=== PATIENT | male | born 1940 | race Caucasian/White ===

== ENCOUNTER 2017-10-09 14:05 | Outpatient (CLI) | payer MEDICARE, BC ==
[~2017-10-09 14:05] MED LIST: Iopamidol 370 76% 100 ML VIAL ONE
== END 2017-10-09 14:06 | disposition home or self-care (01) ==
LOC: BICCT 14:05
PROVIDERS: ATTEND Thoracic Surgery (Cardiothoracic Vascular Surgery)
DX: I71.4 Abdominal aortic aneurysm, without rupture (principal); I70.1 Atherosclerosis of renal artery; K80.20 Calculus of gallbladder without cholecystitis without obstruction; M79.672 Pain in left foot; M79.671 Pain in right foot
CPT/HCPCS: 75635

== ENCOUNTER 2017-11-08 06:25 | Inpatient (IN) | payer MEDICARE, BC ==
[2017-11-07 09:31] VITALS: BMI 30.7
[2017-11-08] MEDS ORDERED: Phenylephrine HCL 10 MG/ML VIAL ONE (06:33)
[2017-11-08] MEDS ORDERED: Fentanyl 250 MCG/5 ML VIAL ONE ×2 (06:33→10:16)
[2017-11-08 06:48] LABS: #Basophils 0.1 thou/uL (0.0-0.2); #Eosinphils 0.3 thou/uL (0.0-0.7); #Lymphocytes 2.7 thou/uL (1.20-3.40); #Monocytes 0.8 thou/uL (0.11-0.59); #Neutrophils 4.3 thou/uL (1.40-6.50); %Basophils 0.6 % (0.0-1.0); %Eosinophils 3.9 % (0.0-10.0); %Lymphocytes 33.2 % (21.0-51.0); %Neutrophils 52.3 % (42.0-75.0); Hemoglobin 13.7 g/dL (14.0-18.0); Mean Corpuscular HGB CONC 33.2 g/dL (32.0-36.0); Mean Corpuscular Hemoglobin 30.9 pg (27.0-31.0); Mean Corpuscular Volume 93.1 fl (80.0-94.0); Platelet Count 224 thou/uL (130-400); RBC Distribution Width 11.5 % (11.5-14.5); Red Blood Cell (RBC) Count 4.42 mill/uL (4.70-6.10); White Blood Cell (WBC) Count 8.3 thou/uL (4.8-10.8)
[2017-11-08] MEDS ORDERED: CEFAZOLIN/Water 2 GM/20 ML SYRINGE ONE (06:51)
[2017-11-08 06:52] LABS: INR-International Normal Ratio 1.1; PTT 28.4 SEC (22.9-36.1)
[2017-11-08] MEDS ORDERED: Heparin 10,000 UNITS/1 ML VIAL ONE (06:52)
[2017-11-08 06:59] LABS: Anion Gap 10 mmol/L (10-20); BUN (Urea Nitrogen) 29 mg/dL (8.4-25.7); Calc. Creatinine Clearance 42 mL/min (70-130); Calcium 8.9 mg/dL (7.8-10.44); Carbon Dioxide 27 mmol/L (23-31); Chloride 107 mmol/L (98-107); Estimated GFR-MDRD 37; Glucose 107 mg/dL (83-110); Potassium 4.2 mmol/L (3.5-5.1); Sodium 140 mmol/L (136-145)
[2017-11-08] MEDS ORDERED: Protamine Sulfate 50 MG/5 ML VIAL ONE (08:56)
[2017-11-08] MEDS ORDERED: Promethazine HCl 25 MG/ML VIAL SLOW IVP PRN (10:38)
[2017-11-08] MEDS ORDERED: Ondansetron HCl/PF 4 MG/2 ML Vial IVP PRN ×2 (10:38→12:17)
[2017-11-08] MEDS ORDERED: Promethazine HCl 25 MG/ML VIAL IM PRN ×2 (10:38→12:17)
--- NOTE | 2017-11-08 10:43 | OP ---
DATE OF PROCEDURE: 11/08/2017 PREOPERATIVE DIAGNOSIS: Abdominal aortic aneurysm. POSTOPERATIVE DIAGNOSIS: Abdominal aortic aneurysm. PROCEDURE: 1. Endovascular repair of abdominal aortic aneurysm with a 23 x 14 x 103 E2S Medtronic Endurant francisca n body left. 2. Left iliac extension with a 16 x 10 x 120 extension. 3. Right iliac extension with a 16 x 10 x 120 right iliac extension. 4. ProGlide closure of the right femoral access. 5. Open femoral exposure of the left access with an endarterectomy and patch angioplasty closure. SURGEON: Dr. Marcus Griffin and Dr. Will Robles. ANESTHESIA: General endotracheal. ESTIMATED BLOOD LOSS: 150 mL. TOTAL CONTRAST: 62.25 mL. TOTAL FLUOROSCOPY TIME: 13 minutes. PROCEDURE IN DETAIL: After consent was obtained, the patient was taken to the operating room and morales armida in the supine position on operating room table. Appropriate anesthetic monitor was placed and ge neral endotracheal anesthesia induced. Groins were prepped and draped in usual sterile fashion. Usi ng ultrasound guidance, the common femoral artery was accessed on the right and a 5 Belgian sheath morales armida. ProGlides were placed in a crossed fashion for preclose. On the left, ultrasound guidance was used to access the left common femoral artery. ProGlides were t hen placed in a cross fashion for preclose. The Bentson guidewire on the right was exchanged with a Arsh catheter for a Lunderquist wire. A 12-F rench sheath was then placed into the abdominal aneurysm. On the left, the Bentson guidewire was exc hanged with a Arsh catheter for a Lunderquist wire. Contra catheter was placed on the right. Abdomi nal aortogram was performed. Renal arteries were localized and an E2S graft selected. The graft was passed over the Lunderquist wire on the left in position. The graft was deployed just below the lef t renal artery. Access to the right gate was then performed utilizing a Jemison catheter and Lunderquis t wire. The Contra catheter was placed into the graft and twirled and it twirled easily. Hand injec gm arteriogram was performed through the right sheath eliminating the iliac arteries. The appropria te iliac extension was selected and deployed. This was performed in a similar fashion on the left. Reliant balloons were used to tap out the full length of the graft. Aortogram showed excellent resul t with a late type 2 endoleak. The patient was given 7500 units of heparin at the beginning of the p rocedure. On the right guidewires and sheaths were removed and ProGlides closed for good hemostasis. On the left, ProGlides were closed, but we did not obtain good hemostasis. An 11 Belgian sheath was placed for hemostasis. Cut down on the femoral artery was performed. The ProGlides had deployed on a piece of plaque inside the artery and were not hemostatic. The area of access was debrided. Bovi ne pericardial patch was sewn in place with running 6-0 Prolene suture to close the artery. On relea se of the clamps, there was good hemostasis. 50 mg of protamine was given. Wounds were irrigated, c losed in layers and Dermabond applied to the skin. The patient was awakened, extubated, and transfer red to the recovery room in stable condition. Needle, sponge, and instrument counts were all reporte d correct at the end of the procedure.
[2017-11-08] MEDS ORDERED: Nitroglycerin 50 MG/250 ML BOT 250 ML IVPB PRN (12:17)
[2017-11-08] MEDS ORDERED: Fentanyl 100 MCG/2 ML VIAL SLOW IVP PRN (12:17)
[2017-11-08] MEDS ORDERED: hydrALAZINE 20 MG/ML VIAL SLOW IVP PRN ×2 (12:17→16:48)
[2017-11-08] MEDS ORDERED: HYDROcodone/Acetaminophen 5/325 mg Tablet PO PRN ×2 (12:17)
[2017-11-08] MEDS ORDERED: Acetaminophen 325 MG TAB PO PRN (12:17)
[2017-11-08] MEDS: Sodium Chloride 0.9% 1,000 ML IV SCH (13:44)
[2017-11-08] MEDS: Gabapentin 100 MG CAP PO SCH ×2 (14:06→21:14)
[2017-11-08] MEDS: CEFAZOLIN/Water 2 GM/20 ML SYRINGE SLOW IVP SCH ×2 (14:32→21:20)
[2017-11-08] MEDS ORDERED: Ondansetron HCl/PF 4 MG/2 ML Vial ONE (15:16)
[2017-11-08] MEDS ORDERED: PROPOFOL 200 MG/20 ML VIAL ONE (15:16)
[2017-11-08] MEDS ORDERED: PHENYLEPHRINE-NS 100 MCG/ML 10 ML SYRINGE ONE (15:16)
[2017-11-08] MEDS ORDERED: Glycopyrrolate 0.2 MG/ML 5 ML SYRINGE ONE (15:16)
[2017-11-08] MEDS ORDERED: Dexamethasone 20 MG/5 ML VIAL ONE (15:16)
[2017-11-08] MEDS ORDERED: Lidocaine 1% PF 5 ML VIAL ONE (15:16)
[2017-11-08] MEDS ORDERED: Labetalol 100 MG/20 ML MDV ONE (15:16)
[2017-11-08] MEDS ORDERED: Heparin 10,000 UNITS/ 10 ML VIAL ONE (15:16)
[2017-11-08] MEDS ORDERED: Acetaminophen/Codeine 30-300mg Tablet PO PRN ×2 (16:51)
[2017-11-08] MEDS ORDERED: Losartan 25 MG TAB PO SCH (17:00)
--- NOTE | 2017-11-08 20:59 | CON ---
DATE OF CONSULTATION: 11/08/2017 HISTORY OF PRESENT ILLNESS: Mr. Martinez is a very pleasant gentleman who underwent endovascular aor tic aneurysm repair today. He has no complaints after his surgery. He is awake, moving all his extremities and denies any pain anywhere. PAST MEDICAL HISTORY: Remarkable for, 1. Hypertension. 2. Lipid disorder. 3. History of arthritis. 4. History of cerebrovascular accident in the past. 5. History of osteoarthritis. 6. History of vascular headaches. MEDICATIONS: Prior to admission, he was on aspirin, atorvastatin, losartan, calcium, vitamin D, hydr ocodone, gabapentin. PAST SURGICAL HISTORY: He has had cataract surgery in the past and L5 laminectomy in 2009. ALLERGIES: Has no drug allergies. SOCIAL HISTORY: He is nonsmoker, nondrinker, does not use drugs. FAMILY HISTORY: Negative for lung disease in early age, socially interesting his had the same s urgery 5 years ago. REVIEW OF SYSTEMS: Twelve point is otherwise negative. PHYSICAL EXAMINATION: GENERAL: He is a very pleasant gentleman in no distress. He has not urinated since surgery and says he has tried, but cannot. I asked the nurse to ultrasound him while I was there. VITAL SIGNS: His blood pressure is 139/72, heart rate 87, respiratory rate 17, oximetry is 96. HEENT: Pupils are equal. Sclerae is anicteric. NECK: Supple. LUNGS: Clear. HEART: Regular rhythm. S1 and S2 are normal. ABDOMEN: Soft and nontender. EXTREMITIES: Warm. He moves all 4 extremities neurologically. LABORATORY DATA: His coags are normal. White count is 8.3, hemoglobin 13.7, platelets 224. Sodium 140, potassium 4.2, chloride 107, bicarbonate 27, BUN 29, creatinine 1.8. IMPRESSION: 1. Status post endovascular aortic aneurysm repair. 2. Chronic kidney disease. 3. History of peripheral vascular disease or stroke in the past. He appears stable at this time in the ICU. This is a 50 minutes consult greater than 50% of the consult time was spent on the unit coordinating care.
[2017-11-08] MEDS ORDERED: Atorvastatin Calcium 40 MG TAB PO SCH (21:00)
[2017-11-08] MEDS: Metoprolol Tartrate 25 MG TAB PO SCH (21:14)
[2017-11-09] MEDS: Sodium Chloride 0.9% 1,000 ML IV SCH ×2 (00:11→09:49)
[2017-11-09 04:37] LABS: #Basophils 0.1 thou/uL (0.0-0.2); #Lymphocytes 1.7 thou/uL (1.20-3.40); #Monocytes 1.4 thou/uL (0.11-0.59); #Neutrophils 10.1 thou/uL (1.40-6.50); %Basophils 0.7 % (0.0-1.0); %Lymphocytes 12.8 % (21.0-51.0); %Monocytes 10.6 % (0.0-10.0); %Neutrophils 75.9 % (42.0-75.0); Hemoglobin 10.6 g/dL (14.0-18.0); Mean Corpuscular HGB CONC 33.7 g/dL (32.0-36.0); Mean Corpuscular Hemoglobin 31.4 pg (27.0-31.0); Mean Corpuscular Volume 93.1 fl (80.0-94.0); Mean Platelet Volume 8.1 fL (7.4-10.4); Platelet Count 183 thou/uL (130-400); RBC Distribution Width 11.4 % (11.5-14.5); Red Blood Cell (RBC) Count 3.37 mill/uL (4.70-6.10); White Blood Cell (WBC) Count 13.4 thou/uL (4.8-10.8)
[2017-11-09 05:10] LABS: Anion Gap 13 mmol/L (10-20); BUN (Urea Nitrogen) 32 mg/dL (8.4-25.7); Calc. Creatinine Clearance 39 mL/min (70-130); Calcium 7.8 mg/dL (7.8-10.44); Carbon Dioxide 19 mmol/L (23-31); Chloride 107 mmol/L (98-107); Estimated GFR-MDRD 34; Glucose 163 mg/dL (83-110); Sodium 134 mmol/L (136-145)
[2017-11-09] MEDS: CEFAZOLIN/Water 2 GM/20 ML SYRINGE SLOW IVP SCH (05:20)
[2017-11-09 08:51] VITALS: TEMP 98.5
[2017-11-09] MEDS ORDERED: Aspirin 81 mg Enteric Coated Tablet PO SCH (09:00)
[2017-11-09] MEDS ORDERED: Losartan 25 MG TAB PO SCH (09:00)
--- NOTE | 2017-11-09 09:51 | PRG ---
DATE OF SERVICE: 11/09/2017 SUBJECTIVE: Mr. Martinez looks great. He is sitting on the side of the bed. PHYSICAL EXAMINATION: LUNGS: Clear. HEART: Regular rhythm. S1 and S2 normal. ABDOMEN: Soft and nontender. MUSCULOSKELETAL: His feet are warm. VITAL SIGNS: His heart rate is 77, blood pressure 122/49, respiratory rate 18. LABORATORY DATA: White count 13.4, hemoglobin 10.6 and it was 13.7 yesterday, platelets 183. Sodium 134, potassium 5, chloride 107, bicarbonate 19, BUN 32, creatinine 1.94. IMPRESSION: 1. Status post endovascular repair of an aortic aneurysm. 2. Acute on chronic kidney disease with slight decline in renal function as expected in the perioper ative period and he will need to be followed closely if he is discharged as an outpatient. 3. Blood loss anemia. PLAN: As per Cardiothoracic Surgery. He is medically stable at this point in time. If he stays, I would repeat lab in the morning and if he is discharged home, then he will need lab repeated sometime early next week.
[2017-11-09] MEDS: Gabapentin 100 MG CAP PO SCH (10:01)
[2017-11-09] MEDS: Metoprolol Tartrate 25 MG TAB PO SCH (10:01)
--- NOTE | 2017-11-09 11:11 | DIS ---
DATE OF ADMISSION: 11/08/2017 DATE OF DISCHARGE: 11/09/2017 PRINCIPAL DIAGNOSIS: Abdominal aortic aneurysm. SECONDARY DIAGNOSIS: Hypertension. PROCEDURES PERFORMED: Endovascular repair of abdominal aortic aneurysm 23 x 14 x 103 E2S AST Medtron ic Endurant main body on the left with a left iliac extension 16 x 10 x 120 and a right iliac extensi on with 16 x 10 x 120 ProGlide closure of the right femoral access, open femoral exposure with endart erectomy and patch angioplasty closure of left access 11/08/2017. HISTORY OF PRESENT ILLNESS AND HOSPITAL COURSE: Patient is a 77-year-old man with hypertension who w as found to have an abdominal aortic aneurysm. Anatomically, it was amenable to EVAR and the plan wa s made to proceed with EVAR percutaneous approach was initiated, but there was failure to adequately close the left femoral puncture site with percutaneous ProGlide technique that was converted to an op en approach to endarterectomized plaque into a patch angioplasty of the arteriotomy, he recovered in the Intensive Care Unit and the only events of note were tachycardia and marked hypertension primaril y associated with his attempt at voiding as his heart rates were achieving 110s and systolic blood pr essures as high as 200s. He was started on beta blockade in the form of Lopressor 25 mg b.i.d. while for the most part, his heart rates and blood pressures have been under adequate control, early this morning around 6:00 his heart rates and blood pressures went back up again. Today on postoperative d ay #1, he is doing well. The incisions are clean and dry, has strong dorsalis pedis pulses and his a bdomen is soft and nontender. He already has some Vicodin at home. [facility] Lopressor 25 mg b.i.d. Follow up will be in the office there.
--- NOTE | 2017-12-06 09:35 | EKG ---
Test Reason : PREOP Blood Pressure : / mmHG Vent. Rate : 076 BPM Atrial Rate : 076 BPM P-R Int : 140 ms QRS Dur : 080 ms QT Int : 376 ms P-R-T Axes : -19 061 052 degrees QTc Int : 423 ms Normal sinus rhythm Normal ECG When compared with ECG of 27-JUN-2012 14:11, No significant change was found Confirmed by DR. Rex BOWEN ([id number]) on 12/06/2017 9:34:24 AM Referred By: Kerwin LOVELL Confirmed By:DR. Rex BOWEN
== END 2017-11-09 10:54 | disposition home or self-care (01) | DRG 269 ==
LOC: SURG A 06:25 → CCU 12:48
PROVIDERS: ADMIT Thoracic Surgery (Cardiothoracic Vascular Surgery); ATTEND Thoracic Surgery (Cardiothoracic Vascular Surgery)
PROC: 04V03DZ Restriction of Abdominal Aorta with Intraluminal Device, Percutaneous Approach (ICD-10-PCS; principal; 2017-11-08)
PROC: 04CL0ZZ Extirpation of Matter from Left Femoral Artery, Open Approach (ICD-10-PCS; 2017-11-08)
PROC: 04VC3DZ Restriction of Right Common Iliac Artery with Intraluminal Device, Percutaneous Approach (ICD-10-PCS; 2017-11-08)
PROC: 04VD3DZ Restriction of Left Common Iliac Artery with Intraluminal Device, Percutaneous Approach (ICD-10-PCS; 2017-11-08)
PROC: 04UL0JZ Supplement Left Femoral Artery with Synthetic Substitute, Open Approach (ICD-10-PCS; 2017-11-08)
DX: I71.4 Abdominal aortic aneurysm, without rupture (principal); D50.0 Iron deficiency anemia secondary to blood loss (chronic); E78.2 Mixed hyperlipidemia; Z86.73 Personal history of transient ischemic attack (TIA), and cerebral infarction without residual deficits; Z87.891 Personal history of nicotine dependence; N18.9 Chronic kidney disease, unspecified; I12.9 Hypertensive chronic kidney disease with stage 1 through stage 4 chronic kidney disease, or unspecified chronic kidney disease; R00.0 Tachycardia, unspecified; E66.9 Obesity, unspecified; Z68.30 Body mass index [BMI] 30.0-30.9, adult
CPT/HCPCS: 36415; 76001; 80048; 85025; 85610; 85730; 86850; 86900; 86901; 93005; 93010; C1726; C1760; C1769; C1894; J0360; J1100; J1642; J1644; J2001; J2370; J2405; J2704; J2720; J3010

== ENCOUNTER 2017-12-25 12:41 | Outpatient (CLI) | payer MEDICARE, BC | END 2017-12-25 12:42 | disposition home or self-care (01) | LOC: CT 12:41 | PROVIDERS: ATTEND Thoracic Surgery (Cardiothoracic Vascular Surgery) | DX: I71.4 Abdominal aortic aneurysm, without rupture (principal) | CPT/HCPCS: 82565 ==

== ENCOUNTER 2020-03-29 11:59 | Outpatient (CLI) | payer MEDICARE, BC ==
--- NOTE | 2020-03-29 12:23 | RAD ---
EXAM: CHEST TWO VIEWS 03/29/2020 12:20 PM HISTORY: 79-year-old male with dyspnea COMPARISON: CTA of the chest dated October 09, 2017 FINDINGS: Lungs: There is stable elevation the left hemidiaphragm. There is mild left basilar atelectasis. No acute airspace opacity is evident. Heart: Normal in size and contour. Pulmonary Vessels: Normal. Costophrenic Angles: Clear. Pneumothorax: None. Osseous Structures: Intact. Additional Findings: There is an endograft stent seen within the abdominal aorta. There are gallsto reyes within the upper quadrant of the abdomen. IMPRESSION: No acute cardiopulmonary abnormality. Cholelithiasis Stable elevation left hemidiaphragm with mild left basilar atelectasis
== END 2020-03-29 12:00 | disposition home or self-care (01) ==
LOC: BICRAD 11:59
PROVIDERS: ATTEND Internal Medicine Pulmonary Disease
DX: R06.00 Dyspnea, unspecified (principal); K80.20 Calculus of gallbladder without cholecystitis without obstruction; J98.11 Atelectasis
CPT/HCPCS: 71046

== ENCOUNTER 2020-05-27 06:58 | Outpatient (CLI) | payer MEDICARE, BC, OTHER ==
[2020-05-28 14:53] LABS: SARS-CoV-2 MS2 Positive; SARS-CoV-2 N Gene Negative; SARS-CoV-2 S Gene Negative; SARS-CoV-2 by NAA Not Detected (NotDetected); SARS-CoV-2 orf1ab Negative
== END 2020-05-27 06:59 | disposition home or self-care (01) ==
LOC: LABBT 06:58
PROVIDERS: ATTEND Neurological Surgery
DX: M54.16 Radiculopathy, lumbar region (principal); Z20.828 Contact with and (suspected) exposure to other viral communicable diseases
CPT/HCPCS: 87635; U0003

== ENCOUNTER 2020-06-01 05:29 | Day surgery (SDC) | payer MEDICARE, BC ==
[2020-05-27 13:19] VITALS: BMI 30.7
--- NOTE | 2020-05-31 22:34 | HP ---
HISTORY OF PRESENT ILLNESS: Mr. Martinez is a pleasant 79-year-old man known to our practice for prior lumbar decompression 7 to 8 years ago, who returns now with recurrent left lower extremity pain that sound to best fit in L5 pattern. He has received 2 epidural steroid injections. The worst providing excellent relief and secondly providing roughly 48 hours relief. For this reason, Dr. Lopez has referred him to our office. 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 He hopes to discuss surgical options. Examination is deferred secondary to COVID telehealth visit. PAST MEDICAL HISTORY: Significant for hypercholesterolemia, CVA, migraines, hypertension, arthritis. PAST SURGICAL HISTORY: Lumbar decompression x2. CURRENT MEDICATIONS: 1. Gabapentin. 2. Hydrocodone. 3. Fish oil. 4. Losartan. 5. Atorvastatin. 6. Aspirin. ALLERGIES: NO KNOWN DRUG ALLERGIES. ASSESSMENT: Lumbar radiculopathy. PLAN: Dr. Lopez met with the patient, reviewed imaging, advocated for left L4-L5 decompression. He explained to the patient the risks, benefits, and alternatives to the procedure. The patient expressed understanding and elected to move forward with surgery as discussed. I do believe the patient is mentally competent and capable of making medical decisions for himself. We will move forward with surgery as planned. Job ID: [id number]
[2020-06-01] MEDS ORDERED: Fentanyl 100 MCG/2 ML VIAL ONE ×2 (06:17→08:09)
[2020-06-01] MEDS ORDERED: Bupivacaine HCl 0.5%/Epinephrine 1:200,000/PF 30 ml Vial ONE (06:19)
[2020-06-01] MEDS ORDERED: Thrombin 5000 UNITS/5 ML VIAL ONE (06:19)
[2020-06-01 07:14] LABS: Anion Gap 11 mmol/L (10-20); BUN (Urea Nitrogen) 25 mg/dL (8.4-25.7); Calc. Creatinine Clearance 46 mL/min (70-130); Calcium 8.8 mg/dL (7.8-10.44); Carbon Dioxide 26 mmol/L (23-31); Chloride 107 mmol/L (98-107); Estimated GFR-MDRD 43; Glucose 98 mg/dL (83-110); Potassium 4.2 mmol/L (3.5-5.1); Sodium 140 mmol/L (136-145)
[2020-06-01] MEDS ORDERED: Tamsulosin HCl 0.4 MG CAP ONE (08:18)
--- NOTE | 2020-06-01 09:16 | OP ---
DATE OF PROCEDURE: 06/01/2020 SLIDE ATTENDANT: Stefan Mendoza PA-C INDICATION: Pain. DIAGNOSIS: Lumbar radiculopathy. PROCEDURE PERFORMED: Left L4-L5 decompression. ANESTHESIA: General. DESCRIPTION OF PROCEDURE: The patient was brought into the operating room and put under general anesthesia. He was flipped from the supine to prone position on operating room table. A linear incision was planned over the L4-L5 segment. After prepping and draping and after an appropriate preoperative pause, the incision was created. The soft tissues were swept left of midline. A self-retaining retractor was placed in the wound for optimal exposure. After confirming appropriate level with C-arm fluoroscopy, high-speed cutting drill bit as well as 2, 3, and 4 mm Kerrisons were used to perform a laminectomy along the L4-L5 segment. The laminectomy was extended laterally to encompass the medial half of the facet joint. After completing the decompression, the wound was irrigated. Hemostasis was maintained throughout. The wound was then closed in anatomic layers, and a pressure dressing was applied. There were no known procedural complications. Job ID: [id number]
[2020-06-01] MEDS ORDERED: Ondansetron ODT 4 MG TAB ONE (10:43)
[2020-06-01] MEDS ORDERED: Ketorolac Tromethamine 30 MG/ML VIAL ONE (11:16)
[2020-06-01] MEDS ORDERED: Labetalol HCl 100 MG/20 ML VIAL ONE (11:16)
[2020-06-01] MEDS ORDERED: Glycopyrrolate 0.2 MG/ML 5 ML SYRINGE ONE (11:16)
[2020-06-01] MEDS ORDERED: PROPOFOL 200 MG/20 ML VIAL ONE (11:16)
[2020-06-01] MEDS ORDERED: Rocuronium Bromide 10 MG/ML (10ML VIAL) ONE (11:16)
[2020-06-01] MEDS ORDERED: PHENYLEPHRINE-NS 100 MCG/ML 10 ML SYRINGE ONE (11:16)
[2020-06-01] MEDS ORDERED: Lidocaine 1% PF 5 ML VIAL ONE (11:16)
[2020-06-01] MEDS ORDERED: Ondansetron PF 4 MG/2 ML Vial ONE (11:16)
--- NOTE | 2020-06-01 15:07 | EKG ---
Test Reason : PREOP Blood Pressure : / mmHG Vent. Rate : 057 BPM Atrial Rate : 057 BPM P-R Int : 158 ms QRS Dur : 088 ms QT Int : 440 ms P-R-T Axes : -17 055 030 degrees QTc Int : 428 ms Sinus bradycardia Otherwise normal ECG Confirmed by PAULO RICHARDSON ([id number]) on 06/01/2020 3:07:14 PM Referred By: ABDOULAYE Confirmed By:PAULO RICHARDSON
== END 2020-06-01 11:25 | disposition home or self-care (01) ==
LOC: SDC 05:29
PROVIDERS: ATTEND Neurological Surgery
PROC: 01NB0ZZ Release Lumbar Nerve, Open Approach (ICD-10-PCS; principal; 2020-06-01)
DX: M54.16 Radiculopathy, lumbar region (principal); M48.061 Spinal stenosis, lumbar region without neurogenic claudication; E78.00 Pure hypercholesterolemia, unspecified; G43.909 Migraine, unspecified, not intractable, without status migrainosus; I10 Essential (primary) hypertension; M19.90 Unspecified osteoarthritis, unspecified site; Z86.73 Personal history of transient ischemic attack (TIA), and cerebral infarction without residual deficits; Z79.82 Long term (current) use of aspirin; Z79.899 Other long term (current) drug therapy
CPT/HCPCS: 36415; 76000; 80048; 93005; 93010; J0670; J0690; J1885; J2405; J2704; J3010; Q0162

== ENCOUNTER → 2021-05-10 | Day surgery (SDC) | payer MEDICARE, BC ==
[2021-05-09 10:38] VITALS: BMI 31.4
[~2021-05-10] MED LIST changes: +Acetaminophen/Codeine 30-300mg Tablet ONE; +Acetaminophen/Codeine 30-300mg Tablet PO SCH; +Heparin 10,000 UNITS/ 10 ML VIAL ONE; -Iopamidol 370 76% 100 ML VIAL ONE; +Iopamidol 370 76% 50 ML VIAL FS ONE; +Lidocaine 1% (PF) 30 ML VIAL ONE
== END ==
LOC: CCL 05:54
PROVIDERS: ATTEND Thoracic Surgery (Cardiothoracic Vascular Surgery)
PROC: 047D3DZ Dilation of Left Common Iliac Artery with Intraluminal Device, Percutaneous Approach (ICD-10-PCS; principal; 2021-05-10)
DX: I77.1 Stricture of artery (principal); I71.4 Abdominal aortic aneurysm, without rupture; I10 Essential (primary) hypertension; E78.2 Mixed hyperlipidemia; G25.81 Restless legs syndrome; M85.80 Other specified disorders of bone density and structure, unspecified site; M19.90 Unspecified osteoarthritis, unspecified site; E66.9 Obesity, unspecified; Z68.31 Body mass index [BMI] 31.0-31.9, adult; Z86.73 Personal history of transient ischemic attack (TIA), and cerebral infarction without residual deficits; Z87.891 Personal history of nicotine dependence; Z79.82 Long term (current) use of aspirin; Z79.899 Other long term (current) drug therapy; Z95.820 Peripheral vascular angioplasty status with implants and grafts
CPT/HCPCS: 37221; 76942; 85347; C1876; G0278; J1644; J2001; Q9967